=== PATIENT | female | born 1945 | race Caucasian/White ===

== ENCOUNTER 2018-11-21 06:25 | Day surgery (SDC) | payer OTHER ==
[2018-11-20 11:07] VITALS: BMI 36.8
--- NOTE | 2018-11-20 21:43 | HP ---
This is Haroldo Kirkpatrick PA-C dictating a report for Ishmael Roche MD. HISTORY OF PRESENT ILLNESS: Ms. Landa is a very pleasant 73-year-old, here today for evaluation of 5 months worth of severe low back pain, left greater than right and bilateral L5 pain. She has no history of back issues, but there is onset after having a left shoulder replacement and in the subsequent rehab. She denies any weakness, but does have tingling in the same distribution today. She is taking muscle relaxants and over the counter pain medications, though with modest relief. The pain worsened with rapid walking as well as transitioning out of a seated position. MRI of disk from [facility] reveals moderate to severe lateral recess stenosis at L4 bilaterally as well as severe right-sided foraminal stenosis at L5, which would explain this. She would like to discuss surgery as a possible treatment option. REVIEW OF SYSTEMS: The patient denies fever, chills, weight loss, or night sweats. Denies indigestion, vomiting, or black stools. Denies urinary incontinence. Reports pain in the back and legs. PHYSICAL EXAMINATION: GENERAL: The patient is alert and oriented x3. Gait is mildly antalgic. Lower extremity motor exam is normal. Reflexes are equal and present bilaterally at the patella. ASSESSMENT: Lumbar radiculopathy. PLAN: Dr. Roche met with the patient, reviewed imaging and ultimately advocated for L4-L5 lateral recess decompression. I explained to the patient the risks, benefits, and alternatives to the procedure. The patient expressed understanding and elected to move forward with surgery as discussed. I do believe the patient is mentally competent and capable of making medical decisions for herself. We will move forward with surgery as planned. Job ID: [id number]
[2018-11-21] MEDS ORDERED: Fentanyl 100 MCG/2 ML VIAL ONE (06:51)
[2018-11-21 06:54] LABS: #Basophils 0.1 thou/uL (0.0-0.2); #Eosinphils 0.2 thou/uL (0.0-0.7); #Lymphocytes 2.8 thou/uL (1.20-3.40); #Monocytes 0.7 thou/uL (0.11-0.59); #Neutrophils 6.2 thou/uL (1.40-6.50); %Basophils 0.9 % (0.0-1.0); %Eosinophils 1.8 % (0.0-10.0); %Lymphocytes 28.2 % (21.0-51.0); %Monocytes 7.4 % (0.0-10.0); %Neutrophils 61.6 % (42.0-75.0); Hemoglobin 12.5 g/dL (12.0-16.0); Mean Corpuscular Hemoglobin 31.3 pg (27.0-31.0); Mean Corpuscular Volume 92.1 fL (78.0-98.0); Mean Platelet Volume 6.5 fL (7.4-10.4); Platelet Count 336 thou/uL (130-400); RBC Distribution Width 11.7 % (11.5-14.5); Red Blood Cell (RBC) Count 3.99 mill/uL (4.20-5.40)
[2018-11-21] MEDS ORDERED: Bupivacaine HCl 0.5%/Epinephrine 1:200,000/PF 30 ml Vial ONE (07:04)
[2018-11-21] MEDS ORDERED: Thrombin 5000 UNITS/5 ML VIAL ONE (07:04)
[2018-11-21 07:16] LABS: Anion Gap 12 mmol/L (10-20); BUN (Urea Nitrogen) 16 mg/dL (9.8-20.1); Calc. Creatinine Clearance 67 mL/min (70-130); Calcium 9.9 mg/dL (7.8-10.44); Carbon Dioxide 29 mmol/L (23-31); Chloride 94 mmol/L (98-107); Estimated GFR-MDRD 45; Glucose 100 mg/dL (83-110); Potassium 4.1 mmol/L (3.5-5.1); Sodium 131 mmol/L (136-145)
[2018-11-21] MEDS ORDERED: ePHEDrine/0.9% NaCl/PF SYRINGE 50 mg/10 ml ONE (08:44)
[2018-11-21] MEDS ORDERED: SUGAMMADEX SODIUM 200 MG/2 ML VIAL ONE (08:48)
[2018-11-21] MEDS ORDERED: Ondansetron PF 4 MG/2 ML Vial ONE (12:13)
[2018-11-21] MEDS ORDERED: Lidocaine 1% PF 5 ML VIAL ONE (12:13)
[2018-11-21] MEDS ORDERED: Metoclopramide HCl 10 MG/2 ML VIAL ONE (12:13)
[2018-11-21] MEDS ORDERED: Rocuronium Bromide 10 MG/ML (10ML VIAL) ONE (12:13)
[2018-11-21] MEDS ORDERED: Ketorolac Tromethamine 30 MG/ML VIAL ONE (12:13)
[2018-11-21] MEDS ORDERED: Dexamethasone 20 MG/5 ML VIAL ONE (12:13)
[2018-11-21] MEDS ORDERED: ePHEDrine 50 MG/ML VIAL ONE (12:13)
[2018-11-21] MEDS ORDERED: PROPOFOL 200 MG/20 ML VIAL ONE (12:13)
[2018-11-21] MEDS ORDERED: Glycopyrrolate 0.2 MG/ML 5 ML SYRINGE ONE (12:13)
--- NOTE | 2018-11-21 16:27 | OP ---
DATE OF PROCEDURE: 11/21/2018 RADIO MAINTAINER: Haroldo Kirkpatrick PA-C INDICATION: Pain. DIAGNOSIS: Bilateral L4-L5 lateral recess stenosis with underlying radiculopathy. PROCEDURE PERFORMED: Bilateral L4-L5 decompression. ANESTHESIA: General. DESCRIPTION OF PROCEDURE: The patient was brought into the operating room and placed under general anesthesia. She was flipped from the supine to prone position on the operating room table. A linear incision was planned over L4-L5. After prepping and draping and after an appropriate preoperative pause, the incision was created. The soft tissues were swept away from midline. Self-retaining retractors were placed in the wound for optimal exposure. After confirming the appropriate level with C-arm fluoroscopy, high-speed cutting drill bit was used to perform a bilateral partial hemilaminectomy along the inferior aspect of L4 and the superior aspect of L5. The laminectomies were extended laterally to encompass the medial aspect of the facet joints in order to adequately decompress the descending L5 nerve root. After decompressing the lateral recesses bilaterally, the wound was irrigated. Hemostasis was maintained throughout. The wound was then closed in anatomic layers, and a pressure dressing was applied. There were no known procedural complications. Job ID: [id number]
--- NOTE | 2018-11-21 18:10 | EKG ---
Test Reason : PREOP Blood Pressure : / mmHG Vent. Rate : 054 BPM Atrial Rate : 054 BPM P-R Int : 234 ms QRS Dur : 090 ms QT Int : 472 ms P-R-T Axes : 049 -33 013 degrees QTc Int : 447 ms Sinus bradycardia with 1st degree A-V block with Premature supraventricular complexes Left axis deviation Minimal voltage criteria for LVH, may be normal variant Abnormal ECG No previous ECGs available Confirmed by DR. Marni KLINE ([id number]) on 11/21/2018 6:10:20 PM Referred By: Christi MURRAY Confirmed By:DR. Marni KLINE
== END 2018-11-21 13:21 | disposition home or self-care (01) ==
LOC: SDC 06:25
PROVIDERS: ATTEND Neurological Surgery
PROC: 01NB0ZZ Release Lumbar Nerve, Open Approach (ICD-10-PCS; principal; 2018-11-21)
DX: M48.061 Spinal stenosis, lumbar region without neurogenic claudication (principal); M54.16 Radiculopathy, lumbar region; Z79.82 Long term (current) use of aspirin; Z79.899 Other long term (current) drug therapy; Z88.8 Allergy status to other drugs, medicaments and biological substances
CPT/HCPCS: 36415; 76000; 80048; 85025; 93005; 93010; J0131; J0670; J0690; J1100; J1885; J2001; J2405; J2704; J2765; J3010; J3490